=== PATIENT | male | born 1945 | race Caucasian/White ===

== ENCOUNTER → 2018-02-11 | Outpatient (CLI) | payer OTHER ==
[~2018-02-11] VITALS: Ht 175.3 cm; Wt 88.5 kg
[~2018-02-11] MED LIST: ANTIVERT25 MG PO; ARICEPT 5 MG TAB5 MG PO; ARMOUR THYROID60 M1 PO; ASPIR 8181 M1 PO; BUSPAR30 MG PO; FLOMAX0.4 MG PO; NEURONTIN 300300 M1 PO; ONDANSETRON HCL4 M2 PO; PHENERGAN 25 MG25 M1 PO; PROTONIX40 M1 PO; XANAX 0.25 MG0.25 MG PO; ZETIA10 MG PO; ZOLOFT50 MG PO; ZOLPIDEM TARTRA10 MG PO
--- NOTE | ~2018-02-11 | O ---
[facility] [place] [address] OPERATIVE REPORT Name: REROSSI Gary PIPER Room #: [facility]#: [id number] Admission: 02/11/18 Attend Phys: Arron Parisi MD, Discharge: Date of : 45 Report #: [id number] THIS REPORT FOR: //name// CC: Lam Parisi DATE OF SERVICE: 02/11/2018 PREOPERATIVE DIAGNOSES: 1. Gastroesophageal reflux disease. 2. Dysphagia with intermittent nausea and vomiting. POSTOPERATIVE DIAGNOSES: 1. Gastroesophageal reflux disease. 2. Hiatal hernia. 3. Dysphagia with intermittent nausea and vomiting. PROCEDURE PERFORMED: Thorough esophagogastroduodenoscopy (EGD). SURGEON: Arron Parisi MD CEMENTER OIL WELL: None. ANESTHESIA: Monitored anesthesia care. ESTIMATED BLOOD LOSS: None. COMPLICATIONS: None. SPECIMENS: None. INDICATIONS: The patient is a 72-year-old male, who presented with a longstanding history of reflux disease that is medically recalcitrant, as well as intermittent feeling of food sticking in his lower esophagus, as well as intermittent nausea and vomiting. As such, indication was for EGD today with findings of a tortuous distal esophagus and a moderate sized hiatal hernia, in addition to a normal appearing esophagus from the mucosal aspect of things. DESCRIPTION OF PROCEDURE: After explaining the risks, benefits and alternatives of the procedure with the patient in detail and obtaining consent, the patient was brought to the endoscopy suite supine on the hospital cart. After conducting a thorough timeout procedure, verifying correct patient and procedure, the patient was given monitored anesthesia care. Once adequate anesthesia was obtained, the Fujinon upper endoscope was used to intubate the oropharynx, was traversed down the esophagus with ease. Down in the distal esophagus, it was quite tortuous. Ultimately, I was able to enter into the [facility] [address] [place] [address] OPERATIVE REPORT Name: ROSSI GRIMALDO Room #: [facility]#: [id number] Admission: 02/11/18 Attend Phys: Arron Parisi MD, Discharge: Date of : 45 Report #: [id number] gastric lumen where the pylorus was identified and intubated. The scope was advanced to the second portion of the duodenum where slow careful withdrawal of the scope showed no evidence of duodenitis, gastritis, esophagitis, mass-lesions or ulcerations. There was 1 small questionable erosion at the superior aspect of the stomach that had no bleeding stigmata. Within the gastric lumen, the scope was retroflexed and showed evidence of a moderate size hiatal hernia. The scope was straightened out and withdrawn into the distal esophagus, which showed normal mucosa. The patient did have a patulous lower esophageal sphincter. The scope was advanced back in the gastric lumen where the stomach was fully desufflated. The scope was removed and passed off the field, completing the procedure. At the end of the procedure, all instrument, needle and sponge counts were correct. The patient tolerated the procedure without incident, was awakened in the operating room and transitioned to the recovery room in stable condition with no apparent complications. <ELECTRONICALLY SIGNED> By: Arron Parisi MD, FACS 02/11/18 1601 [id number] Arron Parisi MD, FACS /nt
== END | disposition home or self-care (01) ==
LOC: GI 13:04
DX: K21.9 Gastro-esophageal reflux disease without esophagitis (principal); K44.9 Diaphragmatic hernia without obstruction or gangrene; G47.33 Obstructive sleep apnea (adult) (pediatric); F03.90 Unspecified dementia, unspecified severity, without behavioral disturbance, psychotic disturbance, mood disturbance, and anxiety; F32.9 Major depressive disorder, single episode, unspecified; F41.9 Anxiety disorder, unspecified; E78.5 Hyperlipidemia, unspecified; Z95.1 Presence of aortocoronary bypass graft; Z87.891 Personal history of nicotine dependence; Z79.899 Other long term (current) drug therapy; Z98.890 Other specified postprocedural states
CPT/HCPCS: 62110; 62900

== ENCOUNTER → 2018-04-22 | Outpatient (CLI) | payer OTHER | LOC: ULTRA 12:57 | DX: N28.1 Cyst of kidney, acquired (principal); K80.20 Calculus of gallbladder without cholecystitis without obstruction; K21.9 Gastro-esophageal reflux disease without esophagitis ==

== ENCOUNTER → 2018-05-22 | Outpatient (CLI) | payer OTHER | LOC: NUC 11:09 | DX: K21.9 Gastro-esophageal reflux disease without esophagitis (principal) ==